=== PATIENT | female | born 1935 | race Caucasian/White ===

== ENCOUNTER 2016-11-19 16:46 | Emergency (ER) | payer MEDICARE ==
[~2016-11-19] VITALS: Ht 149.9 cm; Wt 77.3 kg
[2016-11-19] MEDS ORDERED: PERCT10 PO (17:41)
[2016-11-19] MEDS ORDERED: LEVO150 PO (17:41)
[2016-11-19] MEDS ORDERED: RIVA15T PO (17:41)
[2016-11-19] MEDS ORDERED: ACET-66 PO (17:41)
[2016-11-19] MEDS ORDERED: CARV3 PO (17:41)
[2016-11-19] MEDS ORDERED: AMIO200T44 PO (17:41)
[2016-11-19] MEDS ORDERED: FURO40 PO (17:41)
[2016-11-19] MEDS ORDERED: TRAM50TA4 PO (17:41)
[2016-11-19] MEDS ORDERED: KDUR10 PO (17:41)
[2016-11-19] MEDS ORDERED: TraMADol HCL 50 MG TABLET PO ONE (19:30)
[2016-11-19 22:00] VITALS: BP 121/72
== END 2016-11-19 22:08 | disposition home or self-care (01) ==
LOC: EMS 17:09
DX: M25.552 Pain in left hip (principal); M25.511 Pain in right shoulder; H10.9 Unspecified conjunctivitis; Z79.01 Long term (current) use of anticoagulants; I10 Essential (primary) hypertension; E03.9 Hypothyroidism, unspecified; I50.9 Heart failure, unspecified; Z95.0 Presence of cardiac pacemaker
CPT/HCPCS: 73503; 99284

== ENCOUNTER 2017-04-08 08:58 | Inpatient (IN) | payer MEDICARE ==
[~2017-04-08] VITALS: Ht 144.8 cm; Wt 70.1 kg
[~2017-04-08 08:58] MED LIST: ACET-66 PO; AMIO200T44 PO; CARV3 PO; FURO40 PO; KDUR10 PO; LEVO150 PO; PERCT10 PO; RIVA15T PO; TRAM50TA4 PO
[2017-04-08] MEDS ORDERED: ACETAMINOPHEN/CODEINE 300-30 MG TABLET PO ONE (10:45)
[2017-04-08] MEDS ORDERED: HYDROCODONE/ACETAMINOPHEN 10-325 MG TABLET PO ONE (12:00)
[2017-04-08] MEDS ORDERED: ONDANSETRON HCL 4 MG/2 ML VIAL IVP ONE (13:45)
[2017-04-08] MEDS ORDERED: MORPHINE SULFATE 4 MG/ML SYRINGE IVP ONE (13:45)
[2017-04-08 13:48] LABS: BASOPHILS # (AUTO) 0.02 K/uL (0.00-0.20); BASOPHILS % (AUTO) 0.2 % (0.0-2.0); EOSINOPHILS # (AUTO) 0.08 K/uL (0.00-0.70); EOSINOPHILS % (AUTO) 0.66 % (1.0-6.0); HEMATOCRIT 36.7 % (36-46); HEMOGLOBIN 12.3 g/dL (12.0-16.0); LYMPHOCYTES # (AUTO) 1.7 K/uL (1.0-4.8); LYMPHOCYTES % (AUTO) 14.6 % (22.0-44.0); MEAN CORPUSCULAR HEMOGLOBIN 32.4 pg (26.0-34.0); MEAN CORPUSCULAR HGB CONC 33.4 G/dL (31.0-37.0); MEAN CORPUSCULAR VOLUME 97 fL (80-100); MONOCYTES # (AUTO) 0.8 K/uL (0.1-1.0); MONOCYTES % (AUTO) 6.8 % (2.0-9.0); NEUTROPHILS % (AUTO) 77.7 % (40.0-70.0); PLATELET COUNT (AUTO) 154 K/uL (150-450); RED BLOOD CELL COUNT(AUTO) 3.79 MIL/uL (4.00-5.20); RED CELL DISTRIBUTION WIDTH 14.3 % (11.5-14.5); WHITE BLOOD COUNT (AUTO) 11.6 K/uL (4.5-11.0)
[2017-04-08 13:59] LABS: INR 1.7 (0.9-1.1); PROTHROMBIN TIME 17.5 SEC (9.4-11.6)
[2017-04-08 14:02] LABS: CALCIUM, TOTAL 8.8 mg/dL (8.8-10.5); CREATININE 1.24 mg/dL (0.60-1.30); POTASSIUM 4.5 mmol/L (3.5-5.1)
[2017-04-08 14:07] LABS: ALBUMIN 3.6 g/dL (3.4-5.0); BILIRUBIN,TOTAL 0.5 mg/dL (0.1-1.0); TOTAL PROTEIN, SERUM 7.2 g/dL (6.4-8.2)
[2017-04-08 14:30] VITALS: BP 117/72
[2017-04-08 16:37] VITALS: BP 141/79
[2017-04-08] MEDS ORDERED: RISEDRONATE SODIUM 5 MG PO ONE (20:00)
[2017-04-08] MEDS ORDERED: RIVAROXABAN 15 MG TABLET PO SCH (20:15)
[2017-04-08 20:19] VITALS: BP 112/68
[2017-04-08] MEDS: CALCIUM OYSTER SHELL 500 MG TABLET PO SCH (20:25)
[2017-04-08] MEDS: TraMADol HCL 50 MG TABLET PO SCH (20:26)
[2017-04-08] MEDS: CARVEDILOL 3.125 MG TABLET PO SCH (20:26)
[2017-04-08] MEDS: AMIODARONE HCL 200 MG TABLET PO SCH (20:27)
[2017-04-08] MEDS: OxyCODONE HCL/ACETAMINOPHEN 10-325 MG TABLET PO PRN (22:22)
[2017-04-09 00:01] VITALS: BP 108/68
[2017-04-09 01:14] LABS: APPEARANCE,URINE CLOUDY (CLEAR); GLUCOSE, URINE (UA) NEGATIVE (NEGATIVE); KETONES,URINE TRACE mg/dL (NEGATIVE); LEUKOCYTE ESTERASE ,URINE SMALL (NEGATIVE); OCCULT BLOOD,URINE NEGATIVE (NEGATIVE); PH,URINE 5.5 (5.0-8.0); PROTEIN,URINE TRACE (NEGATIVE)
[2017-04-09 01:33] LABS: RBC,URINE 0-2 /HPF (0-2); SQUAMOUS EPITHELIAL CELL,UR Few /LPF (None Seen)
[2017-04-09 05:15] VITALS: BP 96/62
[2017-04-09] MEDS: RISEDRONATE SODIUM 5 MG PO SCH (06:28)
[2017-04-09] MEDS: LEVOTHYROXINE SODIUM 150 MCG TABLET PO SCH (06:28)
[2017-04-09 08:05] VITALS: BP 104/62
[2017-04-09 08:32] LABS: BASOPHILS % (AUTO) 0.5 % (0.0-2.0); EOSINOPHILS % (AUTO) 2.1 % (1.0-6.0); HEMATOCRIT 35.2 % (36-46); HEMOGLOBIN 11.8 g/dL (12.0-16.0); LYMPHOCYTES % (AUTO) 28.5 % (22.0-44.0); MEAN CORPUSCULAR HEMOGLOBIN 32.6 pg (26.0-34.0); MEAN CORPUSCULAR HGB CONC 33.6 G/dL (31.0-37.0); MEAN CORPUSCULAR VOLUME 97 fL (80-100); MONOCYTES # (AUTO) 1.2 K/uL (0.1-1.0); MONOCYTES % (AUTO) 11.3 % (2.0-9.0); NEUTROPHILS % (AUTO) 57.6 % (40.0-70.0); PLATELET COUNT (AUTO) 150 K/uL (150-450); RED BLOOD CELL COUNT(AUTO) 3.63 MIL/uL (4.00-5.20); RED CELL DISTRIBUTION WIDTH 14.6 % (11.5-14.5); WHITE BLOOD COUNT (AUTO) 10.5 K/uL (4.5-11.0)
[2017-04-09 08:42] LABS: INR 3.2 (0.9-1.1); PROTHROMBIN TIME 33.8 SEC (9.4-11.6)
[2017-04-09] MEDS: ACETAMINOPHEN 500 MG TABLET PO PRN (09:03)
[2017-04-09] MEDS: CARVEDILOL 3.125 MG TABLET PO SCH ×2 (09:04→20:41)
[2017-04-09] MEDS: AMIODARONE HCL 200 MG TABLET PO SCH (09:04)
[2017-04-09] MEDS: CALCIUM OYSTER SHELL 500 MG TABLET PO SCH ×2 (09:04→20:41)
[2017-04-09] MEDS: TraMADol HCL 50 MG TABLET PO SCH ×3 (09:04→20:41)
[2017-04-09 09:30] LABS: ALBUMIN 3.6 g/dL (3.4-5.0); BILIRUBIN,TOTAL 0.5 mg/dL (0.1-1.0); CALCIUM, TOTAL 8.8 mg/dL (8.8-10.5); CREATININE 2.23 mg/dL (0.60-1.30); THYROID STIMULATING HORMONE 2.97 uIU/mL (0.36-3.74); TOTAL PROTEIN, SERUM 7.3 g/dL (6.4-8.2)
[2017-04-09 11:27] VITALS: BP 107/59
[2017-04-09] MEDS: SODIUM BICARBONATE 100 MEQ in SODIUM CHLORIDE 0.45% 1,000 ML IV SCH ×2 (11:51→21:37)
[2017-04-09 15:28] VITALS: BP 105/60
[2017-04-09 16:41] LABS: CALCIUM, TOTAL 8.5 mg/dL (8.8-10.5); CREATININE 2.59 mg/dL (0.60-1.30)
[2017-04-09 16:49] LABS: POTASSIUM 6.3 mmol/L (3.5-5.1)
[2017-04-09] MEDS ORDERED: INSULIN REGULAR, HUMAN 100 UNITS/ML IVP ONE (17:15)
[2017-04-09] MEDS ORDERED: DEXTROSE 50%-WATER 25 GM/50 ML SYRINGE IVP ONE (17:15)
[2017-04-09] MEDS ORDERED: SODIUM POLYSTYRENE SULFONATE 15 GM/60 ML SUSPENSION BOTTLE PO ONE (17:15)
[2017-04-09 20:23] VITALS: BP 110/63
[2017-04-10] VITALS (7 sets, daily range): BP systolic 98–117; BP diastolic 51–65
[2017-04-10 00:13] LABS: GLUCOSE,POINT OF CARE 132 MG/DL (70-110)
[2017-04-10] MEDS: OxyCODONE HCL/ACETAMINOPHEN 10-325 MG TABLET PO PRN ×2 (01:56→07:00)
[2017-04-10] MEDS ORDERED: LIFI1DRO OS (04:50)
[2017-04-10] MEDS ORDERED: CARB4OS OS (04:50)
[2017-04-10] MEDS ORDERED: CARBOXYMETHYLCELLULOSE SODIUM 0.4 ML OPHTHALMIC SOLUTION [PF] OS PRN (05:00)
[2017-04-10] MEDS ORDERED: [UNRECOGNIZED DRUG - OTHER] OS PRN (05:00)
[2017-04-10] MEDS: LEVOTHYROXINE SODIUM 150 MCG TABLET PO SCH (05:56)
[2017-04-10] MEDS: RISEDRONATE SODIUM 5 MG PO SCH (07:00)
[2017-04-10 08:12] LABS: CREATININE 2.46 mg/dL (0.60-1.30); POTASSIUM 5.1 mmol/L (3.5-5.1)
[2017-04-10] MEDS: TraMADol HCL 50 MG TABLET PO SCH ×3 (08:23→21:29)
[2017-04-10] MEDS: CARVEDILOL 3.125 MG TABLET PO SCH ×2 (08:23→21:00)
[2017-04-10] MEDS: CALCIUM OYSTER SHELL 500 MG TABLET PO SCH ×2 (08:23→21:29)
[2017-04-10] MEDS: AMIODARONE HCL 200 MG TABLET PO SCH (08:23)
[2017-04-10] MEDS: SODIUM BICARBONATE 100 MEQ in SODIUM CHLORIDE 0.45% 1,000 ML IV SCH ×2 (08:23→21:23)
[2017-04-10 10:02] LABS: INR 1.6 (0.9-1.1); PROTHROMBIN TIME 17.4 SEC (9.4-11.6)
[2017-04-11] MEDS: MUPIROCIN CALCIUM 2% 22 GM OINTMENT NASAL SCH ×3 (00:26→20:22)
[2017-04-11 04:20] VITALS: BP 112/59
[2017-04-11] MEDS: LEVOTHYROXINE SODIUM 150 MCG TABLET PO SCH (06:44)
[2017-04-11] MEDS: RISEDRONATE SODIUM 5 MG PO SCH (06:44)
[2017-04-11] MEDS: SODIUM BICARBONATE 100 MEQ in SODIUM CHLORIDE 0.45% 1,000 ML IV SCH (06:45)
[2017-04-11 08:14] VITALS: BP 129/66
[2017-04-11] MEDS: TraMADol HCL 50 MG TABLET PO SCH ×2 (08:35→16:00)
[2017-04-11] MEDS: AMIODARONE HCL 200 MG TABLET PO SCH (08:35)
[2017-04-11] MEDS: CARVEDILOL 3.125 MG TABLET PO SCH ×4 (08:36→21:30)
[2017-04-11] MEDS: ACETAMINOPHEN 500 MG TABLET PO PRN (08:36)
[2017-04-11] MEDS: CALCIUM OYSTER SHELL 500 MG TABLET PO SCH ×4 (08:36→21:30)
[2017-04-11 08:37] LABS: PHOSPHORUS 4.2 mg/dL (2.5-4.9)
[2017-04-11 08:42] LABS: ALBUMIN 2.9 g/dL (3.4-5.0); BILIRUBIN,TOTAL 0.6 mg/dL (0.1-1.0); CALCIUM, TOTAL 8.4 mg/dL (8.8-10.5); CREATININE 1.87 mg/dL (0.60-1.30); POTASSIUM 5.3 mmol/L (3.5-5.1); TOTAL PROTEIN, SERUM 6.6 g/dL (6.4-8.2)
[2017-04-11 08:50] LABS: INR 1.2 (0.9-1.1); PROTHROMBIN TIME 13.1 SEC (9.4-11.6)
[2017-04-11 09:05] LABS: BASOPHILS % (AUTO) 0.2 % (0.0-2.0); EOSINOPHILS % (AUTO) 3.1 % (1.0-6.0); HEMATOCRIT 29.7 % (36-46); HEMOGLOBIN 9.9 g/dL (12.0-16.0); LYMPHOCYTES % (AUTO) 20.4 % (22.0-44.0); MEAN CORPUSCULAR HEMOGLOBIN 32.7 pg (26.0-34.0); MEAN CORPUSCULAR HGB CONC 33.4 G/dL (31.0-37.0); MEAN CORPUSCULAR VOLUME 98 fL (80-100); MONOCYTES # (AUTO) 1.3 K/uL (0.1-1.0); MONOCYTES % (AUTO) 13.3 % (2.0-9.0); NEUTROPHILS # (AUTO) 6.1 K/uL (1.8-7.7); PLATELET COUNT (AUTO) 118 K/uL (150-450); RED BLOOD CELL COUNT(AUTO) 3.04 MIL/uL (4.00-5.20); RED CELL DISTRIBUTION WIDTH 14.8 % (11.5-14.5); WHITE BLOOD COUNT (AUTO) 9.8 K/uL (4.5-11.0)
[2017-04-11 11:23] VITALS: BP 96/53
[2017-04-11] MEDS ORDERED: OS500 PO (14:28)
[2017-04-11] MEDS ORDERED: RISE5 PO (14:29)
[2017-04-11] MEDS ORDERED: MUPI1OIN4 NS (14:29)
[2017-04-11] MEDS ORDERED: CARB4OS OS (14:31)
[2017-04-11] MEDS ORDERED: OXYC-522 PO (14:32)
[2017-04-11] MEDS: OxyCODONE HCL/ACETAMINOPHEN 10-325 MG TABLET PO PRN (15:26)
[2017-04-11 15:56] VITALS: BP 115/64
[2017-04-11 19:27] VITALS: BP 115/56
[2017-04-11] MEDS ORDERED: ALTEPLASE IV ONE ×2 (20:45)
[2017-04-11] MEDS ORDERED: WATER FOR INJECTION STERILE IV ONE ×2 (20:45)
[2017-04-11 20:59] LABS: BASOPHILS # (AUTO) 0.01 K/uL (0.00-0.20); BASOPHILS % (AUTO) 0.1 % (0.0-2.0); EOSINOPHILS # (AUTO) 0.24 K/uL (0.00-0.70); HEMATOCRIT 31.3 % (36-46); HEMOGLOBIN 10.3 g/dL (12.0-16.0); LYMPHOCYTES # (AUTO) 2.1 K/uL (1.0-4.8); LYMPHOCYTES % (AUTO) 23.5 % (22.0-44.0); MEAN CORPUSCULAR HEMOGLOBIN 32.3 pg (26.0-34.0); MEAN CORPUSCULAR HGB CONC 32.8 G/dL (31.0-37.0); MEAN CORPUSCULAR VOLUME 98 fL (80-100); MONOCYTES # (AUTO) 1.4 K/uL (0.1-1.0); MONOCYTES % (AUTO) 15.5 % (2.0-9.0); NEUTROPHILS # (AUTO) 5.1 K/uL (1.8-7.7); NEUTROPHILS % (AUTO) 58.3 % (40.0-70.0); PLATELET COUNT (AUTO) 126 K/uL (150-450); RED BLOOD CELL COUNT(AUTO) 3.18 MIL/uL (4.00-5.20); RED CELL DISTRIBUTION WIDTH 14.7 % (11.5-14.5); WHITE BLOOD COUNT (AUTO) 8.8 K/uL (4.5-11.0)
[2017-04-11 21:05] LABS: CALCIUM, TOTAL 8.5 mg/dL (8.8-10.5); CREATININE 1.82 mg/dL (0.60-1.30); INR 1.1 (0.9-1.1); POTASSIUM 5.3 mmol/L (3.5-5.1)
[2017-04-12 00:07] VITALS: BP 137/75
[2017-04-12] MEDS: OxyCODONE HCL/ACETAMINOPHEN 10-325 MG TABLET PO PRN ×2 (02:28→13:04)
[2017-04-12 04:16] VITALS: BP 113/68
[2017-04-12] MEDS: RISEDRONATE SODIUM 5 MG PO SCH (06:39)
[2017-04-12] MEDS: LEVOTHYROXINE SODIUM 150 MCG TABLET PO SCH (06:39)
[2017-04-12 07:49] VITALS: BP 149/85
[2017-04-12] MEDS: MUPIROCIN CALCIUM 2% 22 GM OINTMENT NASAL SCH (08:06)
[2017-04-12] MEDS: CALCIUM OYSTER SHELL 500 MG TABLET PO SCH (08:06)
[2017-04-12] MEDS: AMIODARONE HCL 200 MG TABLET PO SCH (08:06)
[2017-04-12] MEDS: CARVEDILOL 3.125 MG TABLET PO SCH (08:07)
[2017-04-12 09:38] LABS: ABG BASE EXCESS 16.2 mmol/L (-2.0-3.0); ABG HCO3 37.5 mmol/L (22.0-26.0); ABG PCO2 66 mmHg (35-45); ABG PH 7.412 (7.35-7.450); ALLEN TEST, BLOOD GAS Positive; TEMPERATURE, FAHRENHEIT, BG 98.5 FAHREN (96.0-98.6)
[2017-04-12 09:39] LABS: ABG OXYHEMOGLOBIN 96.8 % (94.0-100.0)
[2017-04-12 12:03] VITALS: BP 130/65
[2017-04-12] MEDS ORDERED: OXYGEN THERAPY IH SCH (12:30)
[2017-04-12 15:18] VITALS: BP 149/92
[2017-04-12] MEDS: ACETAMINOPHEN 500 MG TABLET PO PRN (16:17)
[2017-04-12 18:33] LABS: ABG A-A DIFF O2 21.5 mmHg (10-20.0)
== END 2017-04-12 16:50 | DRG 563 ==
LOC: EMS 09:05 → 4E 13:58 → 5S 04-09 11:32 → 5N 04-09 17:30
PROVIDERS: ADMIT Internal Medicine; ATTEND Internal Medicine
DX: S42.202A Unspecified fracture of upper end of left humerus, initial encounter for closed fracture (principal); E87.5 Hyperkalemia; N17.9 Acute kidney failure, unspecified; N18.4 Chronic kidney disease, stage 4 (severe); I13.0 Hypertensive heart and chronic kidney disease with heart failure and stage 1 through stage 4 chronic kidney disease, or unspecified chronic kidney disease; I50.9 Heart failure, unspecified; E03.9 Hypothyroidism, unspecified; D72.829 Elevated white blood cell count, unspecified; M81.0 Age-related osteoporosis without current pathological fracture; E66.9 Obesity, unspecified; W01.0XXA Fall on same level from slipping, tripping and stumbling without subsequent striking against object, initial encounter; E78.5 Hyperlipidemia, unspecified; Z96.642 Presence of left artificial hip joint; M11.262 Other chondrocalcinosis, left knee; M19.90 Unspecified osteoarthritis, unspecified site; Z79.01 Long term (current) use of anticoagulants; Z95.0 Presence of cardiac pacemaker; Z95.2 Presence of prosthetic heart valve; Z68.32 Body mass index [BMI] 32.0-32.9, adult; Y92.128 Other place in nursing home as the place of occurrence of the external cause; Y93.89 Activity, other specified; Y92.89 Other specified places as the place of occurrence of the external cause; Y99.8 Other external cause status; Z79.899 Other long term (current) drug therapy
CPT/HCPCS: 70460; 76770; 82728; 82805; 82962; 83540; 83550; 83970; 84100; 84132; 84443; 87081; 93005; 97163; 97166; 97530; 99285; J1815; J2270; J2405; J2997; J3490

== ENCOUNTER → 2017-10-22 | Outpatient (CLI) | payer MEDICARE ==
[~2017-10-22] MED LIST changes: +CARB4OS OS; +LIFI1DRO OS; +MUPI1OIN4 NS; +OS500 PO; +OXYC-522 PO; +RISE5 PO
[2017-10-22 11:50] VITALS: BP 114/60
== END | disposition home or self-care (01) ==
LOC: SRCNTR 10:45
PROVIDERS: ATTEND Internal Medicine Clinical Cardiac Electrophysiology
DX: Z45.018 Encounter for adjustment and management of other part of cardiac pacemaker (principal); I10 Essential (primary) hypertension; E03.9 Hypothyroidism, unspecified; Z96.649 Presence of unspecified artificial hip joint
CPT/HCPCS: G0463